=== PATIENT | male | born 1970 | race African-American/Black ===

== ENCOUNTER 2023-03-09 22:00 | Emergency (ER) | payer MEDICAID, OTHER ==
[~2023-03-09] VITALS: Ht 180.3 cm; Wt 70.0 kg
[~2023-03-09 22:00] MED LIST: ALBUTEROL; TRAM50TA; XANAX
[2023-03-09] MEDS ORDERED: TETANUS, DIPHTHERIA, PERTUSSIS VAC/PF 0.5ML (>10YR OLD) IM ONE (22:45)
[2023-03-09] MEDS ORDERED: LIDOCAINE HCL/PF 1% 10 MG/ML 5ML VIAL INFIL ONE (22:45)
[2023-03-09] MEDS ORDERED: HYDROCODONE/ACETAMINOPHEN 5/325MG TABLET PO ONE (22:45)
[2023-03-09] MEDS ORDERED: BACITRACIN ZINC OINT UDPKT TOP ONE (22:45)
[2023-03-09] MEDS ORDERED: ALBU6.7H3 INH (23:18)
[2023-03-09] MEDS ORDERED: AMOX1TAB16 MT (23:18)
[2023-03-09 23:20] VITALS: BP 123/83
== END 2023-03-09 23:30 | disposition home or self-care (01) ==
LOC: ER 23:14
DX: L03.012 Cellulitis of left finger (principal); J45.909 Unspecified asthma, uncomplicated
CPT/HCPCS: 10060; 99283; J3490; Z7610

== ENCOUNTER 2025-10-30 20:20 | Emergency (ER) | payer MEDICAID, OTHER ==
[~2025-10-30] VITALS: Ht 180.3 cm; Wt 72.3 kg
[~2025-10-30 20:20] MED LIST changes: +ALBU6.7H3 INH; +AMOX1TAB16 MT
[2025-10-30 20:30] VITALS: TEMP 36.7
[2025-10-30 20:53] LABS: BASOPHILS % 0.6 % (0.0-2.0); EOSINOPHILS % 1.4 % (0.0-5.0); HEMATOCRIT. 37.4 % (42.0-52.0); HEMOGLOBIN. 12.4 g/dL (14.0-18.0); LYMPHOCYTES % 17.5 % (20.0-50.0); MEAN PLATELET VOLUME 9.1 fl (7.4-10.4); MONOCYTES % 7.1 % (2.0-8.0); NEUTROPHILS % 73.4 % (40.0-76.0); PLATELET 214 x1000/uL (130-400); RED BLOOD CELL COUNT 3.84 mill/uL (4.7-6.1); RED CELL DISTRIBUTION WIDTH 14.4 % (11.6-14.6)
[2025-10-30 21:14] LABS: CREATININE 0.7 mg/dL (0.6-1.3); UREA NITROGEN BLOOD 8 mg/dL (9-23)
[2025-10-30] MEDS: ALBUTEROL (0.083%) 2.5MG/3ML NEB HHN ONE (21:37)
[2025-10-30] MEDS ORDERED: ACET-2708 PO (21:37)
[2025-10-30 21:45] VITALS: PULSE 104; RESP 22; O2SAT 94
[2025-10-30] MEDS ORDERED: ALBU18HF2 IH (21:56)
[2025-10-30] MEDS ORDERED: AZIT250T MT (21:56)
[2025-10-30 22:04] VITALS: BP 133/85; PULSE 104; RESP 16; O2SAT 98
== END 2025-10-30 22:06 | disposition home or self-care (01) ==
LOC: ER 20:20
DX: R05.9 Cough, unspecified (principal); J20.9 Acute bronchitis, unspecified; J45.901 Unspecified asthma with (acute) exacerbation; I25.2 Old myocardial infarction
CPT/HCPCS: 80048; 85025; 36415; 71045; 94640; 93005; 99285; Z7610 ×3